=== PATIENT | male | born 1955 | race Caucasian/White ===

== ENCOUNTER 2017-01-26 05:53 | Inpatient (IN) | payer BC ==
--- NOTE | 2017-01-13 20:00 | HP ---
PREOPERATIVE HISTORY AND PHYSICAL: DATE OF ADMISSION: This patient is scheduled for AA admission by Dr. Mckeon on 01/26/17. DATE OF PREOPERATIVE HISTORY AND PHYSICAL EXAMINATION: 01/13/17. ATTENDING SURGEON: Dr. Mike Mckeon (dictated by Brennon Cope NP) CHIEF COMPLAINT: Colon polyp. 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 The lesion was tattooed and it was no t amenable to endoscopic resection. The lesion was biopsied and showed no dysplasia. Another benig n polyp was removed from the sigmoid colon. The patient denies any weight loss, change in stool hab its, or blood per rectum. Dr. Mckeon reviewed the findings with the patient and discussed treatm ent of this lesion and has recommended laparoscopic-assisted colon resection, possible open DICT[place] [id number]/[facility] #: [id number]
--- NOTE | 2017-01-13 20:00 | HP ---
CC: Dr. Mckeon at [facility]; Dr. Jatinder Portillo. PREOPERATIVE HISTORY AND PHYSICAL: DATE OF ADMISSION: This patient is scheduled for AA admission by Dr. Mckeon on 01/26/17. DATE OF PREOPERATIVE HISTORY AND PHYSICAL EXAMINATION: 01/13/17. ATTENDING SURGEON: Dr. Mike Mckeon (dictated by Brennon Sumner NP) CHIEF COMPLAINT: Colon polyp. 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 Mckeon felt is in the proximal- to-mid transverse colon. The lesion was tattooed and it was not amenable to endoscopic resection. The lesion was biopsied and showed no dysplasia. Another benign polyp was removed from the sigmoid colon. The patient denies any weight loss, change in stool habits, or blood per rectum. Dr. Mckeon reviewed the above findings with the patient and has recommended laparoscopic-assisted colon resection, possible open colectomy, intraoperative colonoscopy with possible polypectomy and has described the nature of the surgical procedure, the relevant risks, benefits, and alternative and today, I reviewed the typical hospitalization and postoperative care and recovery. The patient and his have had a chance to ask questions and stated that they understand the information and are satisfied with the answers given to their questions. The patient will sign surgical consent on the day of surgery. The patient was instructed on a bowel cleansing prep consisting of Colyte laxative, clear liquid diet, neomycin, and Flagyl to be taken on the day before surgery and he expressed understanding. PAST MEDICAL HISTORY: Significant for type 2 diabetes, ureteral calculi in 2016 , obesity, smoking, hypertension, and PVCs. PAST SURGICAL HISTORY: Tonsillectomy, vasectomy, and kidney stone removal with the most recent being by Dr. Mason, November 2015. MEDICATIONS: 1. Metoprolol 25 mg p.o. b.i.d. 2. Aspirin 81 mg p.o. daily and I have instructed the patient to hold the aspirin 5 days preoperatively. 3. Diovan 40 mg p.o. daily in the evening. 4. Multivitamin daily. 5. Glipizide-metformin 5-500 mg 1 tablet b.i.d. and I advised the patient to hold the glipizide-metformin on the day before surgery while he is doing his bowel prep and also on the morning of surgery. ALLERGIES: No known drug allergies. FAMILY HISTORY: No known bleeding tendencies or clotting disorders. No known anesthesia complications; the patient states that his father had a portion of the colon removed in his 80s, but he is not sure if this was for malignancy. SOCIAL HISTORY: He is and lives with his ; he continues to smoke 1 pack of cigarettes daily; he denies the use of alcohol or other substances; he is retired. REVIEW OF SYSTEMS: The patient has a history of occasional PVCs, first noted when he was admitted for ureteral colic in September 2015 and he was started on metoprolol 25 b.i.d. He had an outpatient workup of the PVCs with a cardiology consultation on 10/23/15. He had no sustained V-tach. He had a treadmill exercise stress test on 12/18/15 with no increase in the frequency of PVCs with exercise. Echocardiogram on 11/20/15 showed no significant left ventricular systolic dysfunction and the EF was 50% to 55% with no significant valvular disease. He has been cleared by his primary care provider, Dr. Jatinder Portillo, to proceed with surgery. The patient denies any current chest pain, palpitations, pressure, or unusual shortness of breath; he is continuing to smoke and underwent pulmonary function test preoperatively by Dr. Tapia; he does not exercise, but remains active around the house. He denies any previous anesthesia complications or bleeding tendencies and has never received a blood transfusion; he denies any history of deep vein thrombosis or pulmonary embolism. He denies any gastrointestinal complaints. He denies any current urinary symptoms. He denies any neurologic symptoms. He is a type 2 diabetic and checks his fingerstick several times a day and fasting fingerstick is around 120 and his recent hemoglobin A1c came down from 9 to 7.3 with an increase of the glipizide/metformin to a b.i.d. dosing. PHYSICAL EXAMINATION GENERAL SURVEY: The patient is a 61-year-old overweight male, in no acute distress. VITAL SIGNS: Height 69 inches, weight 237 pounds, body mass index 35. Blood pressure 140/82, pulse 66 and regular, respiratory rate 18, temperature 97.8 tympanic. SKIN: Warm, dry, intact. HEENT: Benign. NECK: Supple. No cervical lymphadenopathy. No thyromegaly. BACK: No CVA tenderness. LUNGS: Breath sounds bilaterally clear and equal. No wheezes or rhonchi. HEART: Regular rate and rhythm. No murmurs or rubs appreciated. ABDOMEN: Active bowel sounds. Obese, soft, nontender throughout, nondistended without guarding, rigidity, rebound tenderness, or organomegaly. No palpable hernias. GENITALIA EXAM: Deferred. EXTREMITIES: Warm without edema or skin ulceration. RECTAL EXAM: Deferred. NEUROLOGIC: Alert and oriented x3. Steady gait. IMPRESSION: Benign neoplasm of colon, unspecified. Tubulovillous adenoma, felt to be in the proximal transverse colon. PLAN: AA admission to Dr. Mckeon's service, 01/26/17, for laparoscopic- assisted colon resection, possible open colectomy, intraoperative colonoscopy with possible polypectomy. The patient will take a bowel cleansing prep consisting of Colyte laxative, clear liquid diet, neomycin, and Flagyl on the day [place] [id number]/[facility] #: [id number]/[facility] #: [id number] [facility]
[2017-01-26] MEDS ORDERED: Famotidine IV* 10 MG/ML 2 ML (20 mg) IV ONE (06:00)
[2017-01-26] MEDS ORDERED: Metoclopramide IV* 5 MG/ML 2 ML VIAL IV SLOW PU ONE (06:00)
[2017-01-26] MEDS ORDERED: Buffered Lidocaine 1% SYRIN* 3 ML/SYR SYRINGE INTRADERM ONE (06:00)
[2017-01-26] MEDS ORDERED: Famotidine IV* 10 MG/ML 2 ML (20 mg) ONE (06:10)
[2017-01-26] MEDS ORDERED: Metoclopramide IV* 5 MG/ML 2 ML VIAL ONE (06:10)
[2017-01-26] MEDS ORDERED: Heparin VIAL(*) 5000 UNITS/ML VIAL (FIVE THOUSAND) ONE (06:10)
[2017-01-26] MEDS ORDERED: Ertapenem* 1 GM in NS 0.9% 50 ML* 50 ML IVPB ONE (07:00)
[2017-01-26] MEDS ORDERED: Bupivacaine 0.25% EPI 200,000* 30 ML SDV ONE ×2 (07:12→12:00)
[2017-01-26] MEDS ORDERED: Lidocaine 1% INJ* 10 MG/ML 30 ML SDV ONE (07:36)
[2017-01-26] MEDS ORDERED: Midazolam* 1 MG/ML 2 ML VIAL (2 MG) ONE (07:38)
[2017-01-26] MEDS ORDERED: KETAMINE HCL* 50 MG/ML 10 ML VIAL ONE (07:39)
[2017-01-26] MEDS ORDERED: Rocuronium* 10 MG/ML VIAL ONE ×2 (08:23→10:15)
[2017-01-26] MEDS ORDERED: Phenylephrine IV* 40 MCG/ML 10 ML SYRINGE ONE (08:28)
[2017-01-26] MEDS ORDERED: Succinylcholine* 20 MG/ML 10 ML VIAL ONE (08:28)
[2017-01-26] MEDS ORDERED: Propofol* 10 MG/ML 20 ML BTL IV PUSH ONE (08:28)
[2017-01-26] MEDS ORDERED: Neostigmine Methylsulfate* 2 MG/2 ML SYRINGE ONE (09:26)
[2017-01-26] MEDS ORDERED: Glycopyrrolate IV* 0.2 MG/ML 1 ML VIAL ONE (09:26)
[2017-01-26] MEDS ORDERED: Lidocaine 2% PF * 5 ML VIAL ONE (09:48)
[2017-01-26] MEDS ORDERED: Ketorolac INJ* 30 MG/ML 1 ML VIAL IV PRN (10:19)
[2017-01-26] MEDS ORDERED: fentaNYL* 50 MCG/ML 2 ML VIAL (100 MCG VIAL) IV PRN (10:19)
[2017-01-26] MEDS ORDERED: HYDROmorphone* 1 MG/ML 1 ML SYR IV PRN (10:19)
[2017-01-26] MEDS ORDERED: Ketorolac INJ* 30 MG/ML 1 ML VIAL ONE (11:05)
[2017-01-26] MEDS ORDERED: fentaNYL* 50 MCG/ML 2 ML VIAL (100 MCG VIAL) ONE (11:26)
[2017-01-26] MEDS ORDERED: Ondansetron INJ* 2 MG/ML VIAL ONE (11:57)
--- NOTE | 2017-01-26 12:26 | SURGPN ---
Brief Operative Note - Surgery Procedures: OPERATIVE REPORT PRE-OP: Colon polyp POST-OP: 3 cm colon polyp in mid-transverse colon PROCEDURE: 1) Laparoscopic removal (wedge resection) of transverse colon polyp. 2) Colonoscopy with polypectomy with hot snare SURGEON: MD Mike ANESTHESIA: General with local Dr. Richter ASST: Kenan Schreiber MD IVF: 2.3 liters of crystalloid EBL: min SPECIMEN: Colon polyp DRAIN: none WOUND CLASS: 3 COMPLICATIONS: none TO PACU
[2017-01-26] MEDS ORDERED: oxyCODONE/Acetamin 5/325 MG* TAB PO PRN (12:28)
[2017-01-26] MEDS ORDERED: Acetaminophen TAB* 325 MG PO PRN (12:28)
[2017-01-26] MEDS ORDERED: Morphine INJ* 2 MG/ML 1 ML SYRINGE IV PRN (12:28)
[2017-01-26] MEDS ORDERED: Ondansetron INJ* 2 MG/ML VIAL IV PRN (12:30)
[2017-01-26] MEDS ORDERED: NS 0.9% 1000 ML* 1,000 ML IV SCH (12:30)
[2017-01-26] MEDS: Heparin VIAL(*) 5000 UNITS/ML VIAL (FIVE THOUSAND) SUBCUT SCH ×2 (15:48→21:23)
[2017-01-26] MEDS ORDERED: Insulin LISPRO* 1 UNITS UNIT SUBCUT ONE ×2 (16:20→16:25)
[2017-01-26] MEDS ORDERED: Valsartan TAB* 40 MG PO SCH (18:00)
[2017-01-26] MEDS: Ketorolac INJ* 30 MG/ML 1 ML VIAL IV PUSH PRN (18:15)
[2017-01-26] MEDS ORDERED: Dextrose 50% Syringe 50 ML* 25 GM/50 ML SYRINGE IV PUSH PRN (18:26)
[2017-01-26] MEDS: Metoprolol Tartrate TAB* 25 MG PO SCH (21:20)
[2017-01-27] MEDS: Insulin LISPRO* 1 UNITS UNIT SUBCUT SCH ×3 (00:04→12:43)
[2017-01-27] MEDS: Ketorolac INJ* 30 MG/ML 1 ML VIAL IV PUSH PRN (04:14)
[2017-01-27] MEDS: Heparin VIAL(*) 5000 UNITS/ML VIAL (FIVE THOUSAND) SUBCUT SCH ×2 (05:38→14:09)
[2017-01-27] MEDS: Metoprolol Tartrate TAB* 25 MG PO SCH (07:42)
--- NOTE | 2017-01-27 08:40 | PN ---
Progress Note - Progress Note SOAP: Subjective: Passed some flatus. Ambulating in halls with minimal pain Tolerating clear liquids. Wants to go home He is voiding large amounts of clear yellow urine. Objective: Temp Pulse Resp BP Pulse Ox 97.7 F 87 18 117/70 96 01/27/17 07:24 01/27/17 07:24 01/27/17 07:24 01/27/17 07:24 01/27/17 07:24 Intake & Output 01/25/17 01/26/17 01/27/17 01/28/17 06:59 06:59 06:59 06:59 Intake Total 5280 Output Total 1330 Balance 3950 Weight 235 lb Intake: IV Fluids 3975 ERTAPENEM 1GM 50 LR 3350 NS (0.9%) 575 Oral 1305 Output: Urine 730 Hodgson 600 Other: # Bowel Movements 1 Estimated Stool Amount Small PEX: Comfortable Lungs are Clear Abd is soft and non-distended. Incisions are clean and dry. Bowel sounds are present. Extremities without edema Blood sugars noted Assessment: POD# 1 s/p laparoscopic removal of transverse colon polyp Pathology pending DM HTN Plan: Clear liquids Increase activity He would like to go home today and if pain well controlled and does well with oral intake, will d/c after lunch. He will continue metoprolol and diovan and will start Metformin when he is taking regular diet. He will continue to check blood sugars at home Rx to [facility] in [place] for pain please Follow up appt in [place] office with me next .
[2017-01-27] MEDS ORDERED: Aspirin EC Low Dose* 81 MG TAB.EC PO SCH (09:00)
--- NOTE | 2017-01-27 15:21 | OP ---
DATE OF OPERATION: 01/26/17 - ROOM #346 DATE OF : 57 SURGEON: Mike Mckeon MD CIVIL PREPAREDNESS COORDINATOR: Dakota Schreiber MD ANESTHESIOLOGIST: Dr. Richter. ANESTHESIA: General with local. PRE-OP DIAGNOSIS: Colon polyp. POST-OP DIAGNOSIS: A 3 to 4 cm colon polyp in the mid transverse colon. OPERATIVE PROCEDURES: 1. Laparoscopic wedge resection of mid transverse colon polyp. 2. Colonoscopy with snare polypectomy. ESTIMATED BLOOD LOSS: Minimal. IV FLUIDS: 2300 cc of crystalloid. URINE OUTPUT: 600 cc. SPECIMENS: Polyp from mid transverse colon. WOUND CLASSIFICATION: III. DRAINS: None. COMPLICATIONS: None. FINDINGS: The patient had a 3 to 4 cm polyp in the mid transverse colon along the mesenteric border of the mucosa. This was attempted to be removed endoscopically with a colonoscope intraoperatively; however, it was felt that this was too low profile a polyp and in its location, this could not be removed completely, and thus an open colotomy was performed in the mid transverse colon and the polyp was removed using a wedge resection of the EndoGIA stapler. This was all done with the laparoscope. BRIEF HISTORY: Mr. Kendell Tomas is a 61-year-old gentleman who underwent a routine screening colonoscopy. He was noted to have a large colon polyp at about 80 cm, felt to be the proximal transverse colon. This was tattooed and biopsied and returned as tubulovillous adenoma without evidence of dysplasia. After discussion of the options, he is being taken to the operating room for a combined laparoscopic and colonoscopic polyp removal. The procedure was discussed with the patient in detail and the risks were clearly outlined in the preoperatively transcribed history and physical. DESCRIPTION OF PROCEDURE: Written informed consent was obtained. The abdomen was marked with indelible ink and preoperative antibiotics were administered. The patient was taken to the operating room and placed in the semi-lithotomy position with the Zaid stirrups. General anesthesia was administered. A Hodgson catheter was inserted. Sequential compression devices and a warming blanket were applied. The entire abdomen was prepped and draped in the usual sterile fashion. Time-out verification was completed. Next, 0.25% Marcaine was infiltrated just above the umbilicus. In the midline, a vertical incision was made and the midline fascia was divided. The peritoneal cavity was entered under direct vision and a 12-mm blunt port was inserted and the abdomen was insufflated to 15 mmHg. Under direct vision, two 5 mm ports were placed in the right upper abdominal wall and a third 5-mm port was placed in the mid lower abdomen between the pubis and the umbilicus. Initial laparoscopy revealed findings consistent with fatty liver. There was no evidence of ascites. The gallbladder appeared to be normal. There was no abnormality noted and the small bowel was visualized and he had quite a thick, fatty omentum and we were able to identify the right colon, hepatic flexure and transverse colon. We then identified the previously placed endoscopic tattoos, which were placed distal to the lesion and this was just to the patient's left of midline and the lesion appeared to be just about the mid transverse colon. We were then able to elevate the transverse colon and remove the omentum, entering the space superiorly as well as the lesser sac and dividing the omentum both proximally and distally on the colon towards the hepatic flexure and the splenic flexure to mobilize the transverse colon up into view for a planned colonoscopy. This went nicely and we had plenty of mobility at this point. Next, a bowel clamp was placed over the terminal ileum. The Olympus video endoscope was then inserted in through the anal canal and was advanced without difficulty around to the tattooed site and even more proximal over to the hepatic flexure. At this time, we were able to identify the multilobulated polyp, and at this point, it appeared that this was along the mesenteric surface of the mucosa and we were able to see the light well of the colonoscope with the laparoscope, but this did not appear to be something that may be amenable to wedging out from the antimesenteric border with the laparoscope. Next, an attempt was made to remove this with snare through the colonoscope now that we had mobilized the colon and we were able to obtain better visualization. Initially saline was injected distally and then proximally to use the saline lift technique to develop the submucosal space. There was no evidence of the polyp "not lifting.' I then took several large portions of the polyp using the piecemeal technique with the hot snare and these were collected in just distal in the colon. However, after a portion of the polyp removed, it was apparent that there was still quite a bit of low profile morphology to the polyp and I did not feel that we would adequately remove the polyp with the endoscope using the usual snare technique. Next, the polyp fragments were placed in the colonoscopic net and the scope was removed without difficulty and these specimens were sent to pathology. Next, decision was made that the polyp will need to be removed surgically and thus felt that we could make a colotomy since we had a nice mobile transverse colon and the transverse colon was opened on the antimesenteric border through a taenia approximately 3 to 4 cm and this was just overlying the antimesenteric mucosa. We were able to identify the polyp and 2 stay sutures were then placed on the mucosa. This was elevated up out of the base of the colon, i.e., the colon was somewhat inverted and thus we were able to place 2 separate firings of the EndoGIA 60 mm purple load. The specimen was then removed in one single piece with an EndoCatch bag and it was evaluated on the back table and appeared to have clear margins. The staple line appeared to be intact and was not oversewn. This was all done through the laparoscope. Next, the longitudinal colotomy was closed in a transverse orientation with 2 separate firings of the EndoGIA 60 mm reza load. This suture line was oversewn with interrupted 3-0 silk laparoscopically placed sutures. This closed the defect nicely without evidence of narrowing. Hemostasis was assured. All ports were removed under direct vision of the camera and there was no abdominal wall bleeding. The umbilical fascia was closed with interrupted 0 Polysorb suture. The skin at remainder of all ports was then closed with subcuticular 4-0 Polysorb suture. Steri-Strips were applied. The patient tolerated the procedure well and was taken to the recovery room in stable condition. CC: [facility]; Dr. Jatinder Portillo, Primary Care Provider, [facility] * [id number]/[facility] #: [id number] [facility] CENTERPrema
[2017-01-27 15:27] VITALS: BP 141/66
--- NOTE | 2017-01-28 13:57 | DS ---
CC: Cuauhtemoc Taylor DISCHARGE SUMMARY: DATE OF ADMISSION: 01/26/17 DATE OF DISCHARGE: 01/27/17 ATTENDING SURGEON: Mike Mckeon MD HOSPITAL COURSE: Please refer to admission history and physical and details of the operative note. The patient was taken to the operating room on 01/26/17, at which time he underwent laparoscopy. A n intraoperative colonoscopy was performed to see if the large broad-based transverse colon polyp co uld be removed endoscopically. This was not possible. Instead, he underwent a laparoscopic wedge re section of the transverse colon polyp and pathology revealed a tubular adenoma. He had an uneventfu l postoperative course, and as of the morning of discharge, was experiencing minimal pain and was to lerating clear liquid diet with plans to advance gradually over the next few days. PHYSICAL EXAMINATION: As of the morning of discharge, temperature 97.9, blood pressure 141/66, puls e 64, respirations 16, room air saturation 97%. Physical exam was performed by Dr. Mckeon (see s eparate note). IMPRESSION: Status post laparoscopic wedge resection of colon polyp, doing well. PLAN: Discharge home. He will resume his usual home medications, specifically the Medigrip will be resumed when he is tolerating a more regular diet. He will monitor his fingerstick glucoses until then. He has a followup appointment with Dr. Mckeon on 02/05/17 in the [place] office. PATEL RICE [id number]/[facility] #: [id number]
== END 2017-01-27 15:50 | disposition home or self-care (01) | DRG 221 ==
LOC: AA 06:15 → SSU 13:19
PROVIDERS: ADMIT Surgery; ATTEND Surgery
PROC: 0DBL8ZZ Excision of Transverse Colon, Via Natural or Artificial Opening Endoscopic (ICD-10-PCS; 2017-01-26)
PROC: 0DBL0ZZ Excision of Transverse Colon, Open Approach (ICD-10-PCS; principal; 2017-01-26 07:45)
DX: D12.3 Benign neoplasm of transverse colon (principal); E66.9 Obesity, unspecified; K76.0 Fatty (change of) liver, not elsewhere classified; E11.9 Type 2 diabetes mellitus without complications; E05.90 Thyrotoxicosis, unspecified without thyrotoxic crisis or storm; I10 Essential (primary) hypertension; F17.210 Nicotine dependence, cigarettes, uncomplicated; Z98.52 Vasectomy status; Z87.442 Personal history of urinary calculi; Z68.34 Body mass index [BMI] 34.0-34.9, adult; Z79.82 Long term (current) use of aspirin; Z84.89 Family history of other specified conditions
CPT/HCPCS: 88305; 94760; A9270-GY; C1776; J0330; J1335; J1644; J1885; J2001; J2250; J2405; J2704; J3010